=== PATIENT | female | born 1965 | race Caucasian/White ===

== ENCOUNTER 2019-02-19 09:06 | Day surgery (SDC) | payer MEDICARE ==
[2019-02-19] MEDS ORDERED: Marcaine 0.5% SDV 10 ML IJ ONE (09:07)
[2019-02-19] MEDS ORDERED: Depo-Medrol 40 MG/ML IM ONE (09:07)
[2019-02-19] MEDS ORDERED: Ketamine HCl 50 MG/ML ONE (10:21)
[2019-02-19] MEDS ORDERED: DIPRIVAN 200 MG/20 ML IV ONE (10:21)
[2019-02-19] MEDS ORDERED: Lactated Ringers 1,000 ML IV ONE (13:56)
--- NOTE | 2019-02-19 16:36 | XRAY ---
11 seconds fluoroscopy time in surgery for left shoulder injection.
--- NOTE | 2019-02-20 06:33 | XRAY ---
Indication: Left shoulder injection. Intraoperative fluoroscopy was utilized for 11 seconds. A single AP digital spot image reveals the needle tip projected over the rotator interval at the superior medial aspect of the left humeral head. Contrast has been injected for needle tip placement. Correlate with intraoperative findings/report.
== END 2019-02-19 10:50 | disposition home or self-care (01) ==
LOC: SDC-PAIN 09:06
PROVIDERS: ATTEND Psychiatry & Neurology Pain Medicine
DX: M19.012 Primary osteoarthritis, left shoulder (principal); I10 Essential (primary) hypertension; I95.1 Orthostatic hypotension; J45.909 Unspecified asthma, uncomplicated; Z79.899 Other long term (current) drug therapy
CPT/HCPCS: 20610; 73030; 77002; 84703; J1030; J2704; Q9966

== ENCOUNTER 2019-03-12 11:26 | Day surgery (SDC) | payer MEDICARE ==
[2019-03-12] MEDS ORDERED: Marcaine 0.5% SDV 10 ML IJ ONE (11:27)
[2019-03-12] MEDS ORDERED: Ketamine HCl 50 MG/ML ONE (12:13)
[2019-03-12] MEDS ORDERED: DIPRIVAN 200 MG/20 ML IV ONE (12:13)
--- NOTE | 2019-03-12 14:15 | XRAY ---
Indication: Left genicular nerve ablation. Intraoperative fluoroscopy was provided for 10 seconds. 2 digital spot images submitted for interpretation demonstrates anterior needle tips projecting over the medial/lateral supracondyle and medial tibial plateau of the left knee. Correlate with intraoperative findings/report. Incidental previous total knee arthroplasty.
--- NOTE | 2019-03-12 14:29 | XRAY ---
10 seconds fluoroscopy time in surgery for left genicular nerve ablation.
[2019-03-12] MEDS ORDERED: Lactated Ringers 1,000 ML IV ONE (15:26)
== END 2019-03-12 12:58 | disposition home or self-care (01) ==
LOC: SDC-PAIN 11:26
PROVIDERS: ATTEND Psychiatry & Neurology Pain Medicine
DX: M17.12 Unilateral primary osteoarthritis, left knee (principal); I10 Essential (primary) hypertension; J45.909 Unspecified asthma, uncomplicated; I95.1 Orthostatic hypotension; Z79.899 Other long term (current) drug therapy
CPT/HCPCS: 64450; 73560; 77002; 84703; J2704

== ENCOUNTER 2019-04-23 11:41 | Day surgery (SDC) | payer MEDICARE ==
[2019-04-23] MEDS ORDERED: Xylocaine 1% Vial 30 ML PF IJ ONE (11:42)
[2019-04-23] MEDS ORDERED: Marcaine 0.5% SDV 10 ML IJ ONE (11:42)
[2019-04-23] MEDS ORDERED: DIPRIVAN 200 MG/20 ML IV ONE (12:46)
[2019-04-23] MEDS ORDERED: Ketamine HCl 50 MG/ML ONE (12:46)
--- NOTE | 2019-04-23 14:05 | XRAY ---
Indication: Left and: Nerve ablation. Intraoperative fluoroscopy was provided for 14 seconds. 2 digital spot images submitted for interpretation demonstrates anterior needle tips projecting over the medial/lateral supracondyle and medial tibial plateau of the left knee. Correlate with intraoperative findings/report. Incidental previous total knee arthroplasty.
--- NOTE | 2019-04-23 14:19 | XRAY ---
14 seconds fluoroscopy time in surgery for left genicular nerve ablation.
[2019-04-23] MEDS ORDERED: Lactated Ringers 1,000 ML IV ONE (15:18)
== END 2019-04-23 13:27 | disposition home or self-care (01) ==
LOC: SDC-PAIN 11:41
PROVIDERS: ATTEND Psychiatry & Neurology Pain Medicine
DX: M17.12 Unilateral primary osteoarthritis, left knee (principal); I95.1 Orthostatic hypotension; I10 Essential (primary) hypertension; J45.909 Unspecified asthma, uncomplicated; Z79.899 Other long term (current) drug therapy
CPT/HCPCS: 64640; 73560; 77002; 84703; J2001; J2704

== ENCOUNTER 2021-05-13 09:05 | Day surgery (SDC) | payer MEDICARE ==
[~2021-05-13 09:05] MED LIST: BUPIVACAINE 0.5% VIAL IJ ONE; Lactated Ringers 1,000 ML IV ONE; XYLOCAINE 1% HCL 20 ML MDV ONE
[2021-05-13] MEDS ORDERED: Lactated Ringers 1,000 ML IV SCH (09:30)
[2021-05-13] MEDS ORDERED: CEFAZOLIN 2 GM-D5W BAG** 2 GM/50 ML ML IV SCH (09:30)
[2021-05-13 09:50] LABS: Hematocrit 41.7 % (35-47); Hemoglobin 12.7 gm/dl (12.0-16.0); Mean Cell Volume 82.6 fl (78-100); Mean Corpuscular Hemoglobin 25.1 pg (26-32); Mean Corpuscular Hgb Concent. 30.5 g/dl (32-36); Mean Platelet Volume 10.1 fl (7.5-11.0); Platelet Count 380 K/mm3 (150-450); Red Blood Count 5.05 M/mm3 (4.1-5.4); Red Cell Distribution Width 14.9 % (11.5-14.0)
[2021-05-13 10:01] LABS: ALBUMIN 4.4 g/dL (3.5-5.0); ALKALINE PHOSPHATASE 125 U/L (38-126); ANION GAP 11.7 MEQ/L (5-15); BLOOD UREA NITROGEN 18 mg/dL (7-17); CHLORIDE 106 mmol/L (98-107); Calcium 9.2 mg/dL (8.4-10.2); Carbon Dioxide 26 mmol/L (22-30); Creatinine 1 0.53 mg/dL (0.52-1.04); EST GLOMERULAR FILTRATION RATE > 60.0 ML/MIN; Glucose 96 mg/dL (74-106); Potassium 3.9 mmol/L (3.5-5.1); SGOT/AST 30 U/L (14-36); SGPT/ALT 28 U/L (0-35); SODIUM 140 mmol/L (137-145); Total Protein 7.6 g/dL (6.3-8.2)
[2021-05-13] MEDS ORDERED: Versed 2 MG/2 ML Injection ONE ×2 (10:39→13:33)
[2021-05-13] MEDS ORDERED: Versed 2 MG/2 ML Injection IV ONE (10:48)
[2021-05-13] MEDS ORDERED: DIPRIVAN 200 MG/20 ML IV ONE (12:34)
[2021-05-13] MEDS ORDERED: Zemuron 100 MG/10 ML ONE (12:34)
[2021-05-13] MEDS ORDERED: Marcaine 0.5%/Epinephrine 10 ML ONE (15:00)
[2021-05-13] MEDS ORDERED: Naropin 0.5% 30 ML VIAL ONE (15:00)
[2021-05-13] MEDS ORDERED: Decadron 4 MG INJ ONE ×2 (16:00)
[2021-05-13] MEDS ORDERED: REMIFENTANIL HCL IV ONE (16:40)
--- NOTE | 2021-05-13 18:51 | XRAY ---
Indication: Right gastrocnemius resection and flatfoot repair. Intraoperative fluoroscopy provided for 4 minutes 59 seconds. 16 digital spot images ultimately demonstrates talonavicular, talocalcaneal, and 1st tarsal metatarsal fusion with intact fixation hardware. Correlate with intraoperative findings/report.
[2021-05-13] MEDS ORDERED: DEMEROL 50 MG ONE (19:15)
[2021-05-13] MEDS ORDERED: Compazine 10 MG/2 ML ONE (19:22)
[2021-05-13] MEDS ORDERED: TORAdol 30 mg Injection ONE (19:22)
[2021-05-13] MEDS ORDERED: SUBLIMAZE 100 MCG/2 ML ONE (19:56)
[2021-05-13 21:53] VITALS: O2SAT 95
[2021-05-13 22:24] VITALS: BP 140/72; PULSE 100
[2021-05-13 22:41] LABS: Appearance TURBID (CLEAR); Bacteria MODERATE /HPF (NEGATIVE); Bilirubin NEGATIVE (NEGATIVE); Blood NEGATIVE Ery/ul (0-5); Glucose NEGATIVE (NEGATIVE); Ketones SMALL (NEGATIVE); Leukocyte Esterase NEGATIVE (NEGATIVE); Mucus MANY /HPF (NEGATIVE); Nitrite NEGATIVE (NEGATIVE); Protein,Urine Dip NEGATIVE (Negative); Specific Gravity 1.025 (1.005-1.025); Urobilinogen NEGATIVE mg/dL (0-1); WBC 0-2 /HPF (0-5)
--- NOTE | 2021-05-14 08:19 | XRAY ---
4 minutes and 59 seconds fluoroscopy time in surgery for right foot resection.
--- NOTE | 2021-05-16 09:47 | OP ---
SURGERY DATE/TIME: 05/13/2021 3532 PREOPERATIVE DIAGNOSES: 1) Severe acquired and rigid pes planus. 2) Gastrocnemius equinus. 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 5) Forefoot supinatus. 6) Pain right foot. POSTOPERATIVE DIAGNOSES: 1) Severe acquired and rigid pes planus. 2) Gastrocnemius equinus. 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 5) Forefoot supinatus. 6) Pain right foot. PROCEDURES: 1) Gastrocnemius resection. 2) Subtalar joint arthrodesis. 3) Talonavicular joint arthrodesis. 4) Lapidus arthrodesis. 5) Bone marrow aspirate harvest. SURGEON: Aurelio Walter DPM. LEAD MANUFACTURING TECHNICIAN: None. ANESTHESIA: General plus a postoperative popliteal and saphenous block. See anesthesia report for details. HEMOSTASIS: Thigh tourniquet set to 350 mm of Mercury for 120 minutes. ESTIMATED BLOOD LOSS: 150 cc. MATERIALS: 5 cc of Bonus Triad, 10 ml of bone marrow aspirate, 30 cc of cancellous chips. Two - 8.0 mm cannulated fully threaded screws measuring 65 and 75 mm. Two - 50 mm 4.0 headless compression screws. One - 54 mm 6.5 cannulated fully threaded headless compression screw. One - 3.5 inline fusion plate with a combination of locking and nonlocking screws with a 3.5 - 36 mm interfragmentary for Lapidus arthrodesis, 3-0 Nylon, 4-0 Monocryl, 2-0 Vicryl. INJECTABLES: See anesthesia report for details of popliteal and saphenous block. INDICATION FOR SURGERY: Rowena is a very pleasant 56-year-old female who presented to my clinic with concerns of extremely painful pes planus. The patient has one of the more severe deformities that I have seen. From that standpoint she did have caustic symptoms of subfibrillar impingement as well as pain. On weightbearing she does have severe more than 25 degrees of valgus of the hind foot relative to the leg as well as a positive [id number] sign. The patient indicates that she has attempted orthotics, bracing, physical therapy and treatment for this by three other providers and has been unsuccessful in treating this. The patient at this time wishes to proceed with surgical intervention in regards to this issue. She understands all the risks, complications and benefits including but not limited to delayed wound healing, delayed bone healing, nonwound healing and nonbone healing and a situation called nonunion. The patient understands if this situation happens there could potentially be pain as a result. The patient understands there is also a risk for infection, hematoma, seroma and also the possibility of failure of surgical intervention and need for further surgical intervention in the future. The patient understands all these risks and still wishes to proceed with surgical intervention understanding these risks. Plenty of time was allowed for the patient to ask questions which were answered to the patient's apparent satisfaction. It is with this we decided to proceed. DESCRIPTION OF PROCEDURE AND FINDINGS: The patient is brought into the OR and placed on the OR table in the supine position. At this time a well-padded thigh tourniquet was placed on the patient's leg and the tourniquet was set to 350 mm of Mercury. Adequate general anesthesia was administered and the patient's right leg was prepped and draped in the typical sterile fashion and then lowered onto the surgical field. At this time attention was directed to the posterior medial aspect of the right leg where a 4 cm incision was performed through the skin. Subcutaneous tissue was dissected utilizing blunt and sharp dissection being careful not to damage the neurovascular structures along the way. At this time the crural fascia of the leg was identified and incised utilizing a 10 blade. At this time the fascia was then retracted utilizing [employer] retractors. The calf muscle was lengthened utilizing a 10 blade and splitting the gastrocnemius aponeurosis this was checked with the foot held in the neutral position at the rear foot and loaded with same significant distance in the equinus deformity and mobilization of the foot relative to the leg. At this time attention then was directed to the lateral aspect of the calcaneal wall where under fluoroscopy a stab incision was made down through the skin and a curved hemostat was utilized to spread the subcutaneous skin, subcutaneous tissue to prepare for harvest of the bone marrow aspirate. The trocar was introduced in the safe zone of the lateral level of calcaneus and bone marrow aspirate was harvested approximately 60 cc were taken and handed off the field to be spun down. Following this the Esmarch was then applied to the right lower extremity and the tourniquet was inflated to 350 mm of Mercury. At this time attention was directed to the distal tip of the fibula and the anterior process of the calcaneus where an incision was made in line with these two landmarks. Careful dissection was carried out identifying the extensor digitorum brevis and we sloughed it off of the floor of the subtalar joint. The surgical ligaments in between the subtalar joint was resected and the subtalar joint was identified and cleaned off of its cartilage utilizing a combination of curettes and curved osteotomes this was flushed with copious amounts of sterile saline and inspected to have no remaining cartilage on the surface of the subtalar joint. At this time attention was then directed to the dorsal medial aspect of the talonavicular joint where an incision was made through the skin in line with the talonavicular joint. Careful dissection was carried out not to damage any neurovascular structures. This was carried down to the joint line and once again the talonavicular joint was identified, prepped and draped in the typical sterile fashion. At this time once the joints were cleared of all cartilage, 2 mm drill was utilized to fenestrate the joint surfaces and drilled through the 4 mm of the joint surface in multiple areas to stimulate vascular in growth through these channels. A curved hemostat was utilized with a mallet in order to increase surface and break through the subchondral plate. At this time the subtalar joint was pinned primarily lateral and calcaneal axial views in a rectus position relative to the longitudinal axis of the leg with the subtalar joint in a neutral position. The talonavicular joint was graphed into a position with the talar head was not uncovered as it previously was on a loaded surface and pinned utilizing K-wires. A combination of screws two - 8.0 mm x 65 mm and 75 mm screws were introduced from plantar to superior through the talocalcaneal joints making sure not to violate the subtalar joint. Once this positioning was obtained the 6.5 mm cannulated variable compression screw was introduced from a plantar medial aspect of the talonavicular joint and the navicular bone. Following this two - 4.0 x 50 mm headless compression screws were introduced from dorsal central and dorsal lateral. These two joints were assessed and deemed to be in adequate position with the loaded position not rotating into the extreme valgus position she previously did with weightbearing. There was still some forefoot supinatus of this instability and hypermobility of the first ray and at that time the decision was made to proceed with a Lapidus arthrodesis. At this time attention was directed to the first metatarsophalangeal joint where a 15 blade was utilized to identify the joint surface and resect the capsule off the bone. A combination of curettes and a curved osteotome was utilized to resect the cartilage off of the bone. After this was achieved copious amounts of sterile saline were utilized to flush the surgical site. The joint was inspected for any remaining cartilage. A 2.0 mm drill was utilized to fenestrate the surface and then cross action was performed to increase the bone surface. The remaining deficit was grafted utilizing the Bonus Triad and the cortical cancellous chips. Following this a 3.5 x 36 mm fully threaded screw was introduced from a dorsal lateral to plantar medial aspect of the navicular cuneiform in a left lag technique fashion. At this time the 3.5 mm inline fusion plate was utilized to secure the fusion site. At this time a 3.5 mm screw was introduced in the proximal aspect of the plate and a center compression screw was placed into the first distal hole and then locked down in the final hole. After the final hole was locked down, the site was stressed for any cuneiform instability with that we decided to proceed with the instability that was identified between intermediate cuneiform. On fluoroscopy an intercuneiform screw was done in order to protect the construct. The eccentric screw was then removed and then a first and second metatarsal positional screw was placed. Following this copious amounts of sterile saline were utilized to perform the superficial flexor not to flush out any of the graft. Final grafting of the subtalar joint was performed at this time to provide for osteoconductive surface for the subtalar joint deficit to heal in. Following this the incisions were coapted utilizing 2-0 Vicryl and the skin was coapted utilizing a combination of horizontal mattress and simple interrupted sutures. Following this dressing consisting of Betadine, Adaptic, 4x4 and Kerlix were applied to the right lower extremity and a posterior splint consisting of cast padding, 10 rolls plaster for the posterior splint and 10 rolls of plaster in a Sugar [place]-type fashion were applied to the leg and secured utilizing a 4 inch and 6 inch SHA. At this time the patient underwent a popliteal block. See anesthesia reports for details. Following this the patient was returned to the postoperative anesthesia care unit with vital signs stable and vascular status intact. The patient handled the anesthesia as well as the procedure without complication and was returned to the postoperative anesthesia care unit without complications. The patient's discharge orders as indicated in the patient's discharge chart.
== END 2021-05-13 22:15 | disposition home or self-care (01) ==
LOC: SDC 09:05
PROVIDERS: ATTEND Podiatrist Foot & Ankle Surgery
DX: M21.41 Flat foot [pes planus] (acquired), right foot (principal); M21.6X1 Other acquired deformities of right foot; M25.374 Other instability, right foot; M79.671 Pain in right foot; M25.371 Other instability, right ankle; Z79.899 Other long term (current) drug therapy
CPT/HCPCS: 27687; 28297; 28725; 28740; 36415; 38220; 73620; 76000; 76937; 80053; 81001; 85027; 87086; C1713; 01474; 64447; 64450; 76942; J0690; J1100; J1885; J2175; J2250; J2704; J2795; J3010; A9270-GY

== ENCOUNTER 2023-06-13 15:45 | Day surgery (SDC) | payer MEDICARE ==
[2023-06-13] MEDS ORDERED: Sodium Chloride 0.9(Preservative Free) 10 ML IJ ONE (15:46)
[2023-06-13] MEDS ORDERED: Decadron 4 MG INJ IV ONE (15:46)
[2023-06-13] MEDS ORDERED: XYLOCAINE-MPF 1% 5ML SDV IJ ONE (15:46)
[2023-06-13] MEDS ORDERED: Lactated Ringers 1,000 ML IV ONE (18:16)
--- NOTE | 2023-06-13 20:07 | XRAY ---
Indication: Cervical RUEL. Intraoperative fluoroscopy provided for 17 seconds. 2 digital spot image submitted for interpretation demonstrates posterior needle tip projecting posterior to cervical thoracic junction. Small amount of contrast injected for needle tip placement. Correlate with intraoperative findings/report.
--- NOTE | 2023-06-14 09:16 | XRAY ---
17 seconds of fluoroscopy was used in surgery for a cervical RUEL.
== END 2023-06-13 19:00 | disposition home or self-care (01) ==
LOC: SDC-PAIN 15:45
PROVIDERS: ATTEND Psychiatry & Neurology Pain Medicine
DX: M54.12 Radiculopathy, cervical region (principal)
CPT/HCPCS: 62321; 72040; 77003; J1100; Q9966